=== PATIENT | male | born 1990 | race Hispanic/Latino ===

== ENCOUNTER 2019-04-25 08:35 | Emergency (ER) | payer OTHER ==
[~2019-04-25] VITALS: Ht 170.2 cm; Wt 109.1 kg
[2019-04-25 09:14] VITALS: BP 152/86
[2019-04-25] MEDS ORDERED: BENZ200C70 PO (09:31)
[2019-04-25] MEDS ORDERED: MUCI600T31 PO (09:31)
[2019-04-25] MEDS ORDERED: QC A650T3 PO (09:31)
== END 2019-04-25 09:45 | disposition home or self-care (01) ==
LOC: M ED 08:35
DX: J06.9 Acute upper respiratory infection, unspecified (principal); Z87.891 Personal history of nicotine dependence; Z88.2 Allergy status to sulfonamides; Z88.1 Allergy status to other antibiotic agents